=== PATIENT | female | born 1960 | race Caucasian/White ===

== ENCOUNTER 2018-06-21 07:52 | Day surgery (SDC) | payer MEDICARE ==
[~2018-06-21] VITALS: Ht 162.6 cm; Wt 62.4 kg
[~2018-06-21 07:52] MED LIST: Acetaminophen-1 EAC1 PO; BUTALB-ACETAMI1 EAC2 PO; DESV50 PO; DIVA250ER PO; EMGALITY120 MG/1 M SC; EPIPEN 2-P0.3 MG/0.3 IM; LEVSOD100 PO; PROM25 PO; QUETIAPINE FUMA50 MG PO; SUMA6I SC; TIZANIDINE HCL4 MG PO; TOPI100 PO; ZOLP10 PO
--- NOTE | 2018-06-21 10:37 | NUR ---
06/21/18 Claire Iqbal PT. WITH EPISODES OF BRADYCARDIA WITH ADVANCING OF SCOPE, WAS NOTIFIED.
== END 2018-06-21 11:09 | disposition home or self-care (01) ==
LOC: ORSCSDS 07:52
PROVIDERS: Internal Medicine Gastroenterology
PROC: 0DBM8ZX Excision of Descending Colon, Via Natural or Artificial Opening Endoscopic, Diagnostic (ICD-10-PCS; principal; 2018-06-21 09:30)
PROC: 0DB68ZX Excision of Stomach, Via Natural or Artificial Opening Endoscopic, Diagnostic (ICD-10-PCS; principal; 2018-06-21 09:30)
PROC: 0DBN8ZX Excision of Sigmoid Colon, Via Natural or Artificial Opening Endoscopic, Diagnostic (ICD-10-PCS; principal; 2018-06-21 09:30)
PROC: 0DB58ZX Excision of Esophagus, Via Natural or Artificial Opening Endoscopic, Diagnostic (ICD-10-PCS; principal; 2018-06-21 09:30)
PROC: 0DB88ZX Excision of Small Intestine, Via Natural or Artificial Opening Endoscopic, Diagnostic (ICD-10-PCS; principal; 2018-06-21 09:30)
PROC: 0DBP8ZX Excision of Rectum, Via Natural or Artificial Opening Endoscopic, Diagnostic (ICD-10-PCS; principal; 2018-06-21 09:30)
DX: R19.7 Diarrhea, unspecified (principal); K62.1 Rectal polyp; D12.5 Benign neoplasm of sigmoid colon; K63.5 Polyp of colon; K29.80 Duodenitis without bleeding; K21.0 Gastro-esophageal reflux disease with esophagitis; K29.70 Gastritis, unspecified, without bleeding; Z87.11 Personal history of peptic ulcer disease; F41.8 Other specified anxiety disorders; E03.9 Hypothyroidism, unspecified; R10.9 Unspecified abdominal pain; F17.210 Nicotine dependence, cigarettes, uncomplicated; Z79.899 Other long term (current) drug therapy
CPT/HCPCS: 88305; 88342; J0330; J1980; J2405; J7120

== ENCOUNTER → 2018-08-19 | Outpatient (CLI) | payer MEDICARE | LOC: LAB 19:37 → LAB SHORT 19:37 | PROVIDERS: Nurse Practitioner Family | DX: Z01.419 Encounter for gynecological examination (general) (routine) without abnormal findings (principal) | CPT/HCPCS: G0145 ==